=== PATIENT | female | born 1990 | race Hispanic/Latino ===

== ENCOUNTER 2017-07-20 16:53 | Emergency (ER) | payer SELFPAY ==
[2017-07-20] MEDS ORDERED: IBUPROFEN 600 MG TABLET ONE (18:00)
== END 2017-07-20 18:42 | disposition home or self-care (01) ==
LOC: EDH 16:53
DX: S82.842A Displaced bimalleolar fracture of left lower leg, initial encounter for closed fracture (principal); X58.XXXA Exposure to other specified factors, initial encounter; Y93.89 Activity, other specified; Y92.89 Other specified places as the place of occurrence of the external cause; Y99.8 Other external cause status
CPT/HCPCS: 29515; 73610; 73630

== ENCOUNTER 2017-07-30 11:57 | Observation (INO) | payer OTHER ==
[~2017-07-30] VITALS: Ht 157.5 cm; Wt 86.2 kg
[2017-07-30] VITALS (16 sets, daily range): BP systolic 126–158; BP diastolic 63–96
[2017-07-30] MEDS ORDERED: LACTATED RINGERS 1000ML 1,000 ML IV ONE (12:10)
[2017-07-30 12:44] LABS: BASOPHILS % (AUTO) 0.3 % (0.0-5.0); EOSINOPHILS % (AUTO) 0.3 % (0.0-8.0); HEMATOCRIT 42.8 % (36-48); LYMPHOCYTES % (AUTO) 8.4 % (21.0-51.0); MEAN CORPUSCULAR HEMOGLOBIN 27.5 pg (27.0-33.0); MEAN CORPUSCULAR HGB CONC 32.9 g/dL (32.0-36.0); MEAN CORPUSCULAR VOLUME 83.5 fL (79-99); PLATELET COUNT (AUTO) 497 K/uL (130-400); RED BLOOD CELL COUNT(AUTO) 5.13 MIL/uL (4.00-5.50); RED CELL DISTRIBUTION WIDTH 15.8 % (11.0-15.5); WHITE BLOOD COUNT (AUTO) 25.8 K/uL (4.8-10.8)
[2017-07-30 12:52] LABS: CREATININE 0.8 mg/dL (0.5-1.5); POTASSIUM 4.9 mmol/L (3.5-5.1)
[2017-07-30] MEDS: CEFAZOLIN SODIUM 1 GM VIAL ONE ×2 (13:09→19:45)
[2017-07-30] MEDS ORDERED: GLYCOPYRROLATE 0.2 MG/ML 5 ML VIAL ONE (18:39)
[2017-07-30] MEDS ORDERED: ONDANSETRON HCL 4 MG/2 ML VIAL ONE (18:39)
[2017-07-30] MEDS ORDERED: NEOSTIGMINE 5MG/5ML SYR IV ONE ×2 (18:39→20:54)
[2017-07-30] MEDS ORDERED: LIDOCAINE PF 2% 5ML ABBOJECT ONE (18:39)
[2017-07-30] MEDS ORDERED: DEXAMETHASONE SOD PHOSPHATE 10MG/ML 1ML VIAL ONE (18:39)
[2017-07-30] MEDS ORDERED: FENTANYL CITRATE PF 50 MCG/1 ML 2ML VIAL ONE ×4 (18:40→21:25)
[2017-07-30] MEDS ORDERED: MIDAZOLAM HCL 1 MG/ML 2ML VIAL ONE (18:40)
[2017-07-30] MEDS ORDERED: PROPOFOL 10 MG/ML 20ML VIAL IV ONE (18:40)
[2017-07-30] MEDS ORDERED: SODIUM CHLORIDE 0.9% 10 ML VIAL ONE (19:59)
[2017-07-30] MEDS ORDERED: CEFAZOLIN SODIUM 1 GM VIAL ONE (19:59)
[2017-07-30] MEDS ORDERED: SUB TO ALBUTEROL 2.5MG/3ML NEBULES PER P&T IH ONE (20:44)
[2017-07-30] MEDS ORDERED: DURAMORPH PF1 MG/ML 10ML AMP IV ONE (20:57)
[2017-07-30] MEDS ORDERED: SODIUM CHLORIDE 0.9% 1000ML 1,000 ML IV SCH (21:05)
[2017-07-30] MEDS ORDERED: DIPHENHYDRAMINE HCL 25 MG CAPSULE PO PRN (21:15)
[2017-07-30] MEDS ORDERED: KETOROLAC TROMETHAMINE 30MG/ML IV PRN (21:15)
[2017-07-30] MEDS ORDERED: FERROUS FUMARATE 324 MG TABLET PO PRN (21:15)
[2017-07-30] MEDS ORDERED: HYDROCODONE/ACETAMINOPHEN 5/325 MG TAB PO PRN ×2 (21:15)
[2017-07-30] MEDS ORDERED: MEPERIDINE-PF 25 MG/ML SYG ONE (21:48)
[2017-07-31] VITALS (8 sets, daily range): BP systolic 108–143; BP diastolic 61–87
[2017-07-31] MEDS ORDERED: CEFAZOLIN 2GM / 50 ML 50 ML IV SCH (02:15)
[2017-07-31] MEDS: CEFAZOLIN SODIUM 1 GM VIAL IVP SCH ×2 (02:25→09:48)
[2017-07-31] MEDS ORDERED: CELECOXIB 200 MG CAP PO SCH (09:00)
[2017-07-31] MEDS ORDERED: ENOXAPARIN SODIUM 40 MG/0.4 ML SYRINGE SQ SCH (09:00)
[2017-07-31] MEDS ORDERED: POLYETHYLENE GLYCOL 3350 17 GM POWD.PACK PO SCH (09:00)
[2017-07-31] MEDS ORDERED: FAMOTIDINE 20MG TAB 20 MG TAB PO SCH (09:00)
[2017-07-31] MEDS ORDERED: PSYLLIUM SEED 1 EACH PACKET PO SCH (12:00)
[2017-07-31] MEDS ORDERED: HYDR-309 PO (14:00)
[2017-08-01] MEDS ORDERED: BISACODYL 5 MG TABLET.DR PO PRN (21:15)
[2017-08-02] MEDS ORDERED: BISACODYL 10 MG SUPP.RECT RC PRN (21:15)
== END 2017-07-31 15:45 | disposition home or self-care (01) ==
LOC: 4AH 11:57 → UNDOADMOB 11:57 → EDSTATUS 14:00
PROVIDERS: ADMIT Orthopaedic Surgery; ATTEND Orthopaedic Surgery
DX: S82.842A Displaced bimalleolar fracture of left lower leg, initial encounter for closed fracture (principal); M81.0 Age-related osteoporosis without current pathological fracture; W19.XXXA Unspecified fall, initial encounter; Y93.89 Activity, other specified; Y92.89 Other specified places as the place of occurrence of the external cause; Y99.8 Other external cause status; Z79.899 Other long term (current) drug therapy; Z83.3 Family history of diabetes mellitus
CPT/HCPCS: 27814; 36415; 76000; 80048; 84703; 85025; 96372; 96374; 96375; 96376; A4218 ×2; A4649; A4930 ×2; A6223; C1713 ×3; C1776; G0378 ×29; J0690 ×4; J1100; J1650; J1885; J2001; J2175; J2250; J2274; J2405; J2704; J2710 ×2; J3010 ×4; J3490; J7120 ×2; Q4051

== ENCOUNTER 2020-01-27 10:30 | Emergency (ER) | payer OTHER ==
[~2020-01-27 10:30] MED LIST: HYDR-4457 PO
[2020-01-27 11:12] LABS: BASOPHILS % (AUTO) 0.4 % (0.0-5.0); EOSINOPHILS % (AUTO) 0.2 % (0.0-8.0); HEMATOCRIT 44.3 % (36-48); LYMPHOCYTES % (AUTO) 8.4 % (21.0-51.0); MEAN CORPUSCULAR HGB CONC 30.5 g/dL (32.0-36.0); MEAN CORPUSCULAR VOLUME 81.9 fL (79-99); MONOCYTES % (AUTO) 6.5 % (3.0-13.0); NEUTROPHILS % (AUTO) 83.7 % (40.0-77.0); PLATELET COUNT (AUTO) 560 K/uL (130-400); RED BLOOD CELL COUNT(AUTO) 5.41 MIL/uL (4.00-5.50); RED CELL DISTRIBUTION WIDTH 16.8 % (11.0-15.5); WHITE BLOOD COUNT (AUTO) 27.4 K/uL (4.8-10.8)
[2020-01-27 11:24] LABS: CARBON DIOXIDE 28 mmol/L (21-32); CHLORIDE 107 mmol/L (101-111); CREATININE 0.9 mg/dL (0.5-1.5); GLOMERULAR FILTR. RATE CALC 80 mL/min (>60); GLUCOSE,RANDOM 109 mg/dL (70-105); SODIUM SERUM 145 mmol/L (136-145); UREA NITROGEN, BLOOD 9 mg/dL (7-18)
[2020-01-27 11:24] LABS: APPEARANCE,URINE Clear (CLEAR); BILIRUBIN,URINE Negative (NEGATIVE); COLOR,URINE Yellow (YELLOW); GLUCOSE, URINE (UA) Negative (NEGATIVE); KETONES,URINE 15 mg/dL (NEGATIVE); LEUKOCYTE ESTERASE ,URINE Trace (NEGATIVE); NITRATE,URINE Negative (NEGATIVE); OCCULT BLOOD,URINE Negative (NEGATIVE); PH,URINE 5.5 (5.0-8.0); PROTEIN,URINE Trace mg/dL (NEGATIVE); UROBILINOGEN,URINE 0.2 mg/dL (0.2-1.0)
[2020-01-27 11:28] LABS: ACETAMINOPHEN 2 mcg/mL (10-30); ALANINE AMINOTRANSFERASE 34 U/L (12-78); ALBUMIN 3.9 g/dL (3.5-5.0); ALCOHOL, BLOOD < 3 mg/dL (0-10); ASPARTATE AMINOTRANSFERASE 15 U/L (10-37); BILIRUBIN,TOTAL 0.4 mg/dL (0.2-1.0); TOTAL PROTEIN, SERUM 9.1 g/dL (6.0-8.3)
[2020-01-27 11:31] LABS: HCG,QUAL RESULT NEGATIVE (NEGATIVE)
[2020-01-27 11:32] LABS: AMPHET/METH SCREEN,URINE NEGATIVE (NEGATIVE); BARBITURATE SCREEN, URINE NEGATIVE (NEGATIVE); BENZODIAZEPINES SCREEN,URINE NEGATIVE (NEGATIVE); CANNABINOID SCREEN,URINE NEGATIVE (NEGATIVE); COCAINE SCREEN,URINE NEGATIVE (NEGATIVE); OPIATE SCREEN,URINE NEGATIVE (NEGATIVE); PHENCYCLIDINE SCREEN,URINE NEGATIVE (NEGATIVE)
[2020-01-27 11:52] LABS: SALICYLATE < 2.8 mg/dL (2.8-20.0)
[2020-01-27 12:01] LABS: BACTERIA,URINE Rare /HPF (None Seen); RBC,URINE 0-1 /HPF (0-1); SQUAMOUS EPITHELIAL CELL,UR Rare /HPF (0-2); WBC,URINE 0-1 /HPF (0-1)
[2020-01-28] MEDS ORDERED: SODIUM CHLORIDE 0.9% 100 ML IV ONE (06:07)
== END 2020-01-27 21:25 | disposition short-term general hospital (02) ==
LOC: EDH 10:30
DX: F32.89 Other specified depressive episodes (principal); R45.851 Suicidal ideations; F41.9 Anxiety disorder, unspecified
CPT/HCPCS: 36415; 71046; 80053; 80305; 81001; 81025; 85025; 93005; 99285; G0481

== ENCOUNTER 2021-12-08 07:41 | Emergency (ER) | payer OTHER ==
[~2021-12-08] VITALS: Ht 157.5 cm; Wt 77.1 kg
[2021-12-08 07:42] VITALS: BP 100/52
[2021-12-08] MEDS ORDERED: KETOROLAC 30MG VIAL (30MG/ML) IM STA (07:53)
[2021-12-08] MEDS ORDERED: NAPR375T6 PO (09:39)
== END 2021-12-08 10:51 | disposition home or self-care (01) ==
LOC: EDH 07:41
DX: S43.012A Anterior subluxation of left humerus, initial encounter (principal); Z98.890 Other specified postprocedural states; X50.0XXA Overexertion from strenuous movement or load, initial encounter; Y93.89 Activity, other specified; Y92.89 Other specified places as the place of occurrence of the external cause; Y99.8 Other external cause status
CPT/HCPCS: 99284; 81025; 73030; 96372; J1885

== ENCOUNTER 2022-03-22 12:00 | Emergency (ER) | payer OTHER ==
[~2022-03-22] VITALS: Ht 162.6 cm; Wt 77.6 kg
[~2022-03-22 12:00] MED LIST changes: +NAPR375T6 PO
[2022-03-22 12:04] VITALS: BP 104/67
[2022-03-22] MEDS ORDERED: CLIN-141 PO (15:24)
== END 2022-03-22 15:49 | disposition home or self-care (01) ==
LOC: EDH 12:00
DX: L92.8 Other granulomatous disorders of the skin and subcutaneous tissue (principal); Z98.890 Other specified postprocedural states
CPT/HCPCS: 73600

== ENCOUNTER → 2022-04-11 | Day surgery (SDC) | payer OTHER, SELFPAY ==
[~2022-04-11] MED LIST changes: +HYDR-4030 PO; +PARO-37 PO; +TRAZ-187 PO
== END | disposition home or self-care (01) ==
LOC: DAH 16:02
PROVIDERS: ATTEND Internal Medicine Infectious Disease
DX: Z45.2 Encounter for adjustment and management of vascular access device (principal); T84.59XA Infection and inflammatory reaction due to other internal joint prosthesis, initial encounter; Y92.89 Other specified places as the place of occurrence of the external cause
CPT/HCPCS: 71045